=== PATIENT | female | born 1975 | race Caucasian/White ===

== ENCOUNTER 2018-06-27 00:53 | Emergency (ER) | payer OTHER | END 2018-06-27 01:50 | disposition home or self-care (01) | LOC: FTE 00:53 | DX: S81.852A Open bite, left lower leg, initial encounter (principal); J45.909 Unspecified asthma, uncomplicated; W54.0XXA Bitten by dog, initial encounter; Y92.9 Unspecified place or not applicable | CPT/HCPCS: 99283; Z7502 ==